=== PATIENT | male | born 1955 | race Caucasian/White ===

== ENCOUNTER → 2024-11-17 | Outpatient (CLI) | payer MEDICARE | LOC: M CARPUL 14:57 | PROVIDERS: ATTEND Physician Assistant | DX: R07.9 Chest pain, unspecified (principal) ==

== ENCOUNTER → 2025-05-11 | Outpatient (CLI) | payer MEDICARE ==
[2025-05-11 12:32] LABS: VITAMIN B12 LEVEL 244.0 PG/ML (211-911)
[2025-05-16 02:28] LABS: VITAMIN E(ALPHA TOCOPHEROL) 9.6 mg/L (5.7-19.9); VITAMIN E(GAMMA TOCOPHEROL) 1.5 mg/L (<=4.3)
[2025-05-16 18:34] LABS: VITAMIN B1 LEVEL WHOLE BLOOD 188.0 nmol/L (78-185)
== END ==
LOC: M PLALAB 08:46
PROVIDERS: ATTEND Psychiatry & Neurology Neurology
DX: R41.3 Other amnesia (principal); E53.8 Deficiency of other specified B group vitamins; E51.9 Thiamine deficiency, unspecified; E53.1 Pyridoxine deficiency

== ENCOUNTER → 2025-05-30 | Outpatient (CLI) | payer MEDICARE | LOC: M PLAIMG 08:11 | PROVIDERS: ATTEND Physician Assistant | DX: R94.31 Abnormal electrocardiogram [ECG] [EKG] (principal); I08.0 Rheumatic disorders of both mitral and aortic valves; I37.1 Nonrheumatic pulmonary valve insufficiency ==